=== PATIENT | male | born 1980 | race Hispanic/Latino ===

== ENCOUNTER 2018-09-25 08:01 | Inpatient (IN) | payer OTHER ==
[~2018-09-25] VITALS: Ht 167.6 cm; Wt 74.8 kg
[2018-09-25] MEDS ORDERED: ONDANSETRON HCL 4 MG/2 ML VIAL ONE (09:08)
[2018-09-25] MEDS ORDERED: MORPHINE SULFATE 4 MG/1ML SYG ONE (09:08)
[2018-09-25] MEDS ORDERED: CLINDAMYCIN 600 MG/D5% WATER 50 ML IV ONE ×2 (09:09→19:01)
[2018-09-25] MEDS ORDERED: IOHEXOL-350 50ML VIAL IV ONE (09:13)
[2018-09-25 09:14] LABS: BASOPHILS % (AUTO) 0.4 % (0.0-5.0); EOSINOPHILS % (AUTO) 1.6 % (0.0-8.0); LYMPHOCYTES % (AUTO) 10.6 % (21.0-51.0); MEAN CORPUSCULAR HEMOGLOBIN 31.2 pg (27.0-33.0); MEAN CORPUSCULAR HGB CONC 35.1 g/dL (32.0-36.0); MEAN CORPUSCULAR VOLUME 88.7 fL (79-99); MONOCYTES % (AUTO) 15.3 % (3.0-13.0); NEUTROPHILS % (AUTO) 72.1 % (40.0-77.0); PLATELET COUNT (AUTO) 269 K/uL (130-400); RED BLOOD CELL COUNT(AUTO) 5.18 MIL/uL (4.50-6.20); RED CELL DISTRIBUTION WIDTH 13.4 % (11.0-15.5)
[2018-09-25 09:21] LABS: CREATININE 0.9 mg/dL (0.5-1.5); POTASSIUM 3.7 mmol/L (3.5-5.1)
[2018-09-25 09:25] LABS: ALBUMIN 3.9 g/dL (3.5-5.0); BILIRUBIN,TOTAL 0.8 mg/dL (0.2-1.0); TOTAL PROTEIN, SERUM 7.1 g/dL (6.0-8.3)
[2018-09-25] MEDS ORDERED: LACTULOSE 20 GM/30 ML UDCUP PO PRN (10:45)
[2018-09-25] MEDS ORDERED: ONDANSETRON HCL 4 MG/2 ML VIAL IV PRN (10:45)
[2018-09-25] MEDS ORDERED: ACETAMINOPHEN 325 MG TAB PO PRN (10:45)
[2018-09-25] MEDS: CLINDAMYCIN 600 MG/D5% WATER 50 ML IV SCH ×2 (10:45→18:45)
[2018-09-25 11:01] LABS: HEMOGLOBIN A1C 5.3 % (4.0-6.0)
[2018-09-25] MEDS ORDERED: HYDROCODONE/ACETAMINOPHEN 10/325 MG TAB ONE (13:36)
[2018-09-25] MEDS ORDERED: HYDROCODONE/ACETAMINOPHEN 5/325 MG TAB ONE (20:50)
[2018-09-25] MEDS ORDERED: FAMOTIDINE/PF 20 MG/2 ML VIAL IV ONE (20:51)
[2018-09-25] MEDS: FAMOTIDINE/PF 20 MG/2 ML VIAL IV SCH (21:00)
[2018-09-25] MEDS ORDERED: DEXAMETHASONE SOD PHOSPHATE 4 MG/ML 1ML VIAL ONE (23:00)
[2018-09-26] MEDS ORDERED: HYDROCODONE/ACETAMINOPHEN 5/325 MG TAB ONE (02:25)
[2018-09-26 02:40] VITALS: BP 131/88
[2018-09-26] MEDS: CLINDAMYCIN 600 MG/D5% WATER 50 ML IV SCH ×3 (03:12→18:45)
[2018-09-26] MEDS: DEXAMETHASONE SOD PHOSPHATE 4 MG/ML 1ML VIAL IVP SCH ×3 (05:28→19:34)
[2018-09-26 07:30] VITALS: BP 131/91
[2018-09-26] MEDS: FAMOTIDINE/PF 20 MG/2 ML VIAL IV SCH ×2 (09:21→19:33)
[2018-09-26] MEDS: HYDROCODONE/ACETAMINOPHEN 5/325 MG TAB PO PRN ×2 (09:22→19:33)
[2018-09-26] MEDS: ENOXAPARIN SODIUM 40 MG/0.4 ML SYRINGE SQ SCH (09:23)
[2018-09-26 11:00] VITALS: BP 120/63
[2018-09-26 17:30] VITALS: BP 129/79
[2018-09-26 20:00] VITALS: BP 142/74
[2018-09-27 00:16] VITALS: BP 109/58
[2018-09-27] MEDS: CLINDAMYCIN 600 MG/D5% WATER 50 ML IV SCH ×3 (02:47→20:33)
[2018-09-27 04:33] VITALS: BP 102/55
[2018-09-27] MEDS: DEXAMETHASONE SOD PHOSPHATE 4 MG/ML 1ML VIAL IVP SCH (04:39)
[2018-09-27 04:46] LABS: HEMATOCRIT 42.5 % (42-54); MEAN CORPUSCULAR HEMOGLOBIN 30.4 pg (27.0-33.0); MEAN CORPUSCULAR HGB CONC 33.9 g/dL (32.0-36.0); MEAN CORPUSCULAR VOLUME 89.6 fL (79-99); PLATELET COUNT (AUTO) 305 K/uL (130-400); RED BLOOD CELL COUNT(AUTO) 4.74 MIL/uL (4.50-6.20); WHITE BLOOD COUNT (AUTO) 15.2 K/uL (4.8-10.8)
[2018-09-27 04:56] LABS: CREATININE 0.9 mg/dL (0.5-1.5); POTASSIUM 3.4 mmol/L (3.5-5.1)
[2018-09-27 07:54] VITALS: BP 108/57
[2018-09-27] MEDS: HYDROCODONE/ACETAMINOPHEN 5/325 MG TAB PO PRN ×3 (08:54→20:40)
[2018-09-27] MEDS: FAMOTIDINE/PF 20 MG/2 ML VIAL IV SCH (08:55)
[2018-09-27] MEDS: ENOXAPARIN SODIUM 40 MG/0.4 ML SYRINGE SQ SCH (09:07)
[2018-09-27] MEDS ORDERED: DEXAMETHASONE 4 MG TAB PO SCH (11:15)
[2018-09-27] MEDS ORDERED: POTASSIUM CHLORIDE 20MEQ/100ML 100 ML IV PRN (11:15)
[2018-09-27] MEDS ORDERED: LIDOCAINE HCL-MPF 1% 2ML VIAL IVP PRN (11:15)
[2018-09-27] MEDS ORDERED: POTASSIUM CHLORIDE 10% ELIXIR 20 MEQ/15 ML UDCUP PO PRN (11:15)
[2018-09-27] MEDS ORDERED: CLINDAMYCIN HCL 150 MG CAP PO SCH (11:15)
[2018-09-27] MEDS ORDERED: FAMO-136 PO (11:18)
[2018-09-27] MEDS ORDERED: CLIN300C9 PO (11:18)
[2018-09-27] MEDS: POTASSIUM CHLORIDE 20 MEQ ERTAB PO PRN ×2 (11:25→13:49)
[2018-09-27 11:27] VITALS: BP 131/92
--- NOTE | 2018-09-27 12:30 | NUR ---
KAMLA VILLELA NP INFORMED ME SHE WOULD HOLD ON PATIENTS DISCHARGE UNTIL TOMORROW DUE TO ELEVATED WBC 15.2. RX IN CHART.
[2018-09-27] MEDS ORDERED: HYDROCODONE/ACETAMINOPHEN 5/325 MG TAB PO PRN (15:00)
[2018-09-27 16:31] VITALS: BP 149/79
[2018-09-27 19:54] VITALS: BP 134/88
[2018-09-27] MEDS: FAMOTIDINE 20MG TAB 20 MG TAB PO SCH (20:33)
[2018-09-28 00:14] VITALS: BP 118/77
[2018-09-28] MEDS: CLINDAMYCIN 600 MG/D5% WATER 50 ML IV SCH (04:06)
[2018-09-28 04:22] VITALS: BP 156/85
[2018-09-28 05:29] LABS: HEMATOCRIT 43.2 % (42-54); MEAN CORPUSCULAR HEMOGLOBIN 30.9 pg (27.0-33.0); MEAN CORPUSCULAR HGB CONC 34.7 g/dL (32.0-36.0); MEAN CORPUSCULAR VOLUME 89.1 fL (79-99); PLATELET COUNT (AUTO) 335 K/uL (130-400); RED BLOOD CELL COUNT(AUTO) 4.85 MIL/uL (4.50-6.20); RED CELL DISTRIBUTION WIDTH 13.3 % (11.0-15.5); WHITE BLOOD COUNT (AUTO) 14.2 K/uL (4.8-10.8)
[2018-09-28 05:34] LABS: POTASSIUM 3.4 mmol/L (3.5-5.1)
[2018-09-28] MEDS: POTASSIUM CHLORIDE 20 MEQ ERTAB PO PRN ×2 (06:17→08:14)
[2018-09-28 08:09] VITALS: BP 110/56
[2018-09-28] MEDS: FAMOTIDINE 20MG TAB 20 MG TAB PO SCH (08:14)
[2018-09-28] MEDS: HYDROCODONE/ACETAMINOPHEN 5/325 MG TAB PO PRN (08:15)
[2018-09-28] MEDS: ENOXAPARIN SODIUM 40 MG/0.4 ML SYRINGE SQ SCH (08:16)
[2018-09-28 11:28] VITALS: BP 102/56
--- NOTE | 2018-09-28 12:06 | NUR ---
Discharge teaching completed in the room with pt and girlfriend at side. Emphasis on dx, s/s to monitor for, and when to seek emergency care / call 911. MD instructions are to follow up with dentist of choice on Sunday (pt states he already knows one he will call), and PCP in 3 days. Pt states he has no PCP at present - was provided with a list of local MD's and instructed to call for for an appt. Pt given written rx for clindamycin, pepcid, and decadron. Education provided on route, purpose, frequency, and duration of treatment, as well as side effects and adverse effects. PIV removed from Rt AC, tip intact. Dressed with sterile 2x2 and band aid after hemostasis achieved. Pt wheeled to front lobby by [facility] staff for transport home via private car. Pt in stable condition at time of discharge.
== END 2018-09-28 12:10 | disposition home or self-care (01) | DRG 603 ==
LOC: EDH 08:01 → OBSVTOIN 08:02 → EDHIP 08:02 → UNDOADMOB 10:34 → EDHIP 10:34 → 4BH 09-26 02:13
PROVIDERS: ADMIT Internal Medicine; ATTEND Internal Medicine
DX: L03.211 Cellulitis of face (principal); K02.9 Dental caries, unspecified; F17.200 Nicotine dependence, unspecified, uncomplicated; E87.6 Hypokalemia; D72.829 Elevated white blood cell count, unspecified; T38.0X5A Adverse effect of glucocorticoids and synthetic analogues, initial encounter; Y92.89 Other specified places as the place of occurrence of the external cause
CPT/HCPCS: 36415; 70487; 80048; 80053; 83036; 85025; 85027; 85651; 86140; 87040; G0378; J1100; J1650; J2270; J2405; J3490; J8540; Q9967